=== PATIENT | male | born 1980 | race Caucasian/White ===

== ENCOUNTER 2023-06-22 12:39 | Emergency (ER) | payer SELFPAY ==
[2023-06-22 12:48] VITALS: BP 139/94; PULSE 108; RESP 20; TEMP 36.5; O2SAT 100
--- NOTE | 2023-06-22 13:36 | ED.SKABFB ---
HPI - Skin/Abscess/Foreign Bdy General Chief complaint: Skin/Abscess/Foreign Body Stated complaint: skin rash Time Seen by Provider: 06/22/23 13:30 Source: patient and RN notes reviewed Mode of arrival: ambulatory Limitations: no limitations History of Present Illness HPI narrative: 43-year-old Male presents with concern for generalized itchy rash. Reports he was treated for scabies on Thursday, he reports he used the cream, itchiness stopped for 2 days, and is back. He reports he [place] in the [place]. He reports this rash started after he put on a pair of pants that were being stored in his basement. complaint: rash Related Data Home Medications Medication Instructions Recorded Confirmed permethrin 5 % topical cream 1 applic topical ONCE 06/22/23 06/22/23 Allergies Allergy/AdvReac Type Severity Reaction Status Date / Time No Known Allergies Allergy Verified 06/22/23 13:03 Review of Systems Review of Systems: CONSTITUTIONAL: Denies malaise, chills, sweats, or fever. EYES: Denies redness, or discharge. ENT: Denies rhinorrhea, congestion, swollen lips, swollen tongue CARDIOVASCULAR: Denies chest pain, palpitations, or edema. RESPIRATORY: Denies cough or dyspnea. GASTROINTESTINAL: Denies abdominal pain, nausea, vomiting SKIN: Reports generalized itchy rash MUSCULOSKELETAL: Denies joint pain or myalgia. NEUROLOGIC: Denies headache. All systems reviewed & are unremarkable except as noted in HPI and below PMFSH Comments At time of signature, agree with nursing past medical, surgical, social and family history. There is no relevant family history pertinent to the presenting complaint Exam Narrative: GENERAL: Well-appearing, well-nourished, and in no acute distress. HEAD: Normocephalic, atraumatic. EYES: PERRLA, conjunctivae clear, and EOMI. ENT: Mucous membranes moist. Oropharynx without edema, erythema or lesions. NECK: Supple. No lymphadenopathy CHEST: Clear to auscultation. No respiratory distress. HEART: Regular rate and rhythm. SKIN: Warm, dry. Large Patches of slightly raised erythema scattered on the torso, arms, legs. There are also raised papules, scabs, some in linear pattern noted to the arms, legs, feet, hands, fingers consistent scabies NEURO: Alert and oriented x3. PSYCH: Normal mood and affect Course Course Emergency Course: Patient is aware of diagnosis, understands and agrees to treatment plan. Anticipatory guidance given. Patient agrees to follow-up as directed and is aware of reasons to seek care at the emergency department. Portions of this record may have been created with voice recognition software Level of Care: Express Care Visit Vital Signs Vital signs: Vital Signs Temperature 97.7 F 06/22/23 12:48 Pulse Rate 108 H 06/22/23 12:48 Respiratory Rate 20 06/22/23 12:48 Blood Pressure 139/94 H 06/22/23 12:48 Pulse Oximetry 100 06/22/23 12:48 Oxygen Delivery Room Air 06/22/23 12:48 Temperature 97.7 F 06/22/23 12:48 Pulse Rate 108 H 06/22/23 12:48 Respiratory Rate 20 06/22/23 12:48 Blood Pressure 139/94 H 06/22/23 12:48 Pulse Oximetry 100 06/22/23 12:48 Oxygen Delivery Room Air 06/22/23 12:48 Reviewed. MDM - Skin/Abscess/Foreign Bdy MDM Narrative Medical decision making narrative: Does not appear at this time to be erythema multiforme, bullous, SJS, TEN; no evidence at this time to suggest RMSF, endocarditis or Lyme disease; patient looks well, nontoxic and is tolerating oral intake; no neurologic signs or symptoms; no headache, photophobia or neck pain; afebrile; appropriate for initial outpatient treatment; discussed the importance of follow-up, patient agrees; question, viral exanthema, contact dermatitis, allergic dermatitis, eczema, urticaria, scabies. No soft palate or uvula edema, no tongue, lip edema or other mucosal involvement, no respiratory compromise, no stridor, no wheezing, no wheezing, no history of syncop
== END 2023-06-22 13:35 | disposition home or self-care (01) ==
PROVIDERS: Emergency Provider Nurse Practitioner
DX: L25.9 Unspecified contact dermatitis, unspecified cause (principal); B86 Scabies
CPT/HCPCS: 99213; G0463